=== PATIENT | female | born 1950 | race Two or more races ===

== ENCOUNTER 2019-12-09 07:44 | Day surgery (SDC) | payer OTHER ==
[2019-12-09] VITALS (10 sets, daily range): BP systolic 116–162; BP diastolic 58–81
[~2019-12-09] VITALS: Ht 157.5 cm; Wt 51.3 kg
--- NOTE | 2019-12-09 07:52 | Short Stay Surgery H&P ---
History of Present Illness History of Present Illness Chief Complaint abdominal pains and GERDs HPI Kacey Almanza is a 69 year old female who was admitted on for Abdominal Pain/GERDs Patient History PAST MEDICAL HISTORY: (1) Hypertension (2) Umbilical hernia (3) Renal cyst, acquired, right Review of Systems Cardiovascular: Reports: hypertension Respiratory: Reports: no symptoms Skeletal: Reports: trauma Gastrointestinal: Reports: gastro esophageal reflux disease Genitourinary: Reports: no symptoms Neurologic: Reports: no symptoms Endocrine: Reports: no symptoms Hematologic: Reports: no symptoms Physical Exam Skin: normal HENT: normal Heart: normal Lungs: normal Abdomen: abnormal Extremities: normal Genitourinary: normal Plan Plan of Care Upper GI. endoscopy and biopsy Preop Interventions None Summary of Findings See the reports Attestation Are the patient's medical conditions optimized for surgery? Attestation Response: yes Leigh Ann Gonzáles MD Dec 09, 2019 07:52
--- NOTE | 2019-12-09 07:53 | Anethesia Preoperative Eval ---
Anesthesia Pre-op PMH/ROS General Date of Evaluation: Dec 09, 2019 Time of Evaluation: 07:51 Anesthesiologist: nena ASA Score: ASA 4 Mallampati Score Class I : Soft palate, uvula, fauces, pillars visible Class II: Soft palate, uvula, fauces visible Class III: Soft palate, base of uvula visible Class IV: Only hard plate visible Mallampati Classification: Class II Surgeon: ousmane Diagnosis: abdominal pain, gerd Surgical Procedure: egd Anesthesia History: none Family History: no anesthesia problems Allergies: Coded Allergies: No Known Allergies (Unverified , 12/09/19) Medications: see eMAR Patient NPO?: Yes Past Medical History Cardiovascular: Reports: HTN Gastrointestinal/Genitourinary: Reports: GERD, other - renal cysts, umbilical hernia Hematology/Immune: Reports: other - covid-19 negative as of 12/05/2019 Anesthesia Pre-op Phys. Exam Physician Exam Last Vital Signs Date Time Temp Pulse Resp B/P (MAP) Pulse Ox O2 Delivery O2 Flow Rate FiO2 12/09/19 08:37 Room Air 12/09/19 08:05 97.0 62 18 162/79 100 Constitutional: NAD Neurologic: CN 2-12 intact Cardiovascular: RRR Respiratory: CTA Gastrointestinal: S/NT/ND Airway Exam Mallampati Score: Class II MO: limited Neck: flexible TMD: 2fb ROM: limited Anesthesia Pre-op A/P Labs Microbiology Date/Time Source Procedure Growth Status 12/05/19 09:50 Nasopharynx SARS-CoV-2 RdRp Gene Assay - Final Complete Risk Assessment & Plan Assessment: asa4 Plan: mac Status Change Before Surgery: No Pre-Antibiotics Drug: Sunni An MD Dec 09, 2019 07:53
--- NOTE | 2019-12-09 07:53 | Pre-Procedure Note/Attestation ---
Pre-Procedure Note/Attestation Complete Prior to Procedure Planned Procedure: left Procedure Narrative: Examination of the upper GI tract via endoscopy with obtaining biopsy as needed Indications for Procedure Pre-Operative Diagnosis: R/O Peptic ulcer/Gastritis/esophagitis Attestation I attest that I discussed the nature of the procedure; its benefits; risks and complications; and alternatives (and the risks and benefits of such alternatives ), prior to the procedure, with the patient (or the patient's legal employee representative). I attest that, if there was a reasonable possibility of needing a blood transfusion, the patient (or the patient's legal employee representative) was given the [facility] standardized written summary, pursuant to the [place] Blood Safety Act ([place] Health and Safety Code # 1645, as amended). I attest that I re-evaluated the patient just prior to the surgery and that there has been no change in the patient's H&P, except as documented below: Leigh Ann Gonzáles MD Dec 09, 2019 07:53
[2019-12-09] MEDS ORDERED: Lidocaine 1% MPF 10mg/ml 5ml ONE (08:00)
[2019-12-09] MEDS ORDERED: LR 1000ml ONE (08:00)
[2019-12-09] MEDS ORDERED: LR 1000ml 1,000 ML IVLG SCH (08:34)
[2019-12-09] MEDS ORDERED: DiphenhydrAMINE 50mg/ml Inj IVP PRN (08:45)
[2019-12-09] MEDS ORDERED: fentaNYL 100 mcg/2 mL IV PRN (08:45)
[2019-12-09] MEDS ORDERED: Atropine Inj 1mg/10ml Syr IV PRN (08:45)
[2019-12-09] MEDS ORDERED: Midazolam 2mg/2ml Inj IVP PRN (08:45)
--- NOTE | 2019-12-09 08:45 | Endoscopy Procedure Note ---
Endoscopy Procedure Note General Indication for Procedure: Abdominal pains and GERDs Procedures Performed: EGD - Minimal gastritis otherwise normal upper GI. endoscopy. Biopsies obtained from antrum and gastric body. Specimen: yes Pt Tolerated Procedure Well: Yes Estimated Blood Loss: none Anesthesia Anesthesiologist: Dr. Joseph Anesthesia: moderate sedation Medications Medication Given: see anesthesia record Inserted Devices Implant(s) used?: No Quality Quality of Bowel Preparation: Excellent Was there any complications?: No GI Core Measures 50 yrs or older w/o bx or poly: Not Applicable 10yrs. F/U recommended: Not Applicable If not recommended, why?: Med reason:<3 yrs.: System Reason:<3 yrs.: Leigh Ann Gonzáles MD Dec 09, 2019 08:45
[2019-12-09] MEDS ORDERED: GABAPENTIN100 MG ORAL (08:46)
[2019-12-09] MEDS ORDERED: LOSARTAN POTASS50 MG ORAL (08:47)
--- NOTE | 2019-12-09 08:47 | Discharge Instructions ---
Discharge Instructions Discharge Instructions Follow up with: No need to follow with the doctor For Congestive Heart Failure Reminder Report to your physician any weight gain of 5 pounds or more in one week. Leigh Ann Gonzáles MD Dec 09, 2019 08:47
--- NOTE | 2019-12-09 09:26 | Immediate Post-Op Evaluation ---
Immediate Post-Op Evalulation Immediate Post-Op Evalulation Procedure: egd w/bx Date of Evaluation: Dec 09, 2019 Time of Evaluation: 09:07 IV Fluids: 200ml lr Blood Products: none Estimated Blood Loss: negligible Blood Pressure Systolic: 116 Blood Pressure Diastolic: 58 Pulse Rate: 75 Respiratory Rate: 18 O2 Sat by Pulse Oximetry: 100 Temperature (Fahrenheit): 97.0 Pain Score (1-10): 0 Nausea: No Vomiting: No Complications none Patient Status: awake, reacts, patent Hydration Status: adequate Drug: Sunni An MD Dec 09, 2019 09:26
--- NOTE | 2019-12-09 09:26 | 48 Hour Post Anesthesia Eval ---
Post Anesthesia Evaluation Procedure: egd w/bx Date of Evaluation: Dec 09, 2019 Time of Evaluation: 09:09 Blood Pressure Systolic: 131 0: 81 Pulse Rate: 63 Respiratory Rate: 18 Temperature (Fahrenheit): 97.0 O2 Sat by Pulse Oximetry: 100 Airway: patent Nausea: No Vomiting: No Pain Intensity: 0 Hydration Status: adequate Cardiopulmonary Status: stable Mental Status/LOC: patient returned to baseline Post-Anesthesia Complications: none Follow-up care needed: N/A Sunni Joseph MD Dec 09, 2019 09:26
--- NOTE | 2019-12-09 10:00 | Pre-op HX & Phy Repo 2 SIG ---
DATE OF ADMISSION: 12/09/2019 HISTORY OF PRESENT ILLNESS: The patient is a 69-year-old female who is being seen prior to undergoing the procedure of upper GI endoscopy for which she has been scheduled to evaluate her gastrointestinal conditions including upper GI pain that she has been suffering from subsequent to her work injury. The patient was evaluated by me approximately 4 months ago in the office with no further follow-ups. At this time, she is being evaluated medically prior to undergoing the procedure of upper GI endoscopy as I mentioned. The applicant at this time complains of experiencing pain over the upper part of the abdomen associated with rather severe heartburn. She also reports that occasionally she does have difficulty swallowing with foods. The severity of the epigastric pain that she is complaining of is moderate at this point of time, but she has been taking medications such as PPIs and acid suppressors along with antacids to help her with these symptoms, which seems to be good response. She also complains of occasional gas and bloating. She however denies any history of recent vomiting blood or passing bright red blood per rectum. There was no diarrhea or constipation either. 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 At that time, she was started on nonsteroidal anti-inflammatory agents such as naproxen and ibuprofen that she took for some time. However, she does not seem to be taking them any longer at this point of time. PAST MEDICAL HISTORY: Patient has had history of hypertension, otherwise she denies having any history of pneumonia, pancreatitis, hepatitis, or hyperlipidemia etc. PAST SURGICAL HISTORY: Patient has had history of umbilical hernia operation as well as removal of the right kidney cyst. ALLERGIES: To grass. HABITS: The applicant denies drinking alcohol or smoking cigarettes. MEDICATIONS: Current medications are Protonix, metoprolol, sucralfate, gabapentin, hydrochlorothiazide, and Pilocarpine. REVIEW OF SYSTEMS: Basically history of present illness. She denies having any headaches or dizziness or history of fall or syncope. There has been no history of chest pain or shortness of breath or cough or asthma. Neurologically, she also denies having any weakness or tingling sensations or numbness at this time. PHYSICAL EXAMINATION: GENERAL: At this time reveals alert, well oriented, very pleasant female, who does not seem to be in any acute distress. She looks well developed and nourished. VITAL SIGNS: Temperature 97.0, blood pressure 162/78, pulse rate 62 per minute, respiratory rate is 16 per minute, oxygen saturation is 100%. HEENT: Normocephalic. Pupils equal in size and reactive to light and accommodation. No visible jaundice. Buccal cavity, tongue midline, well hydrated. No ulcers. NECK: Supple. No JVD, thyromegaly, or adenopathy. CHEST: Clear to auscultation and percussion. No rales or rhonchi. HEART: S1, S2 normal. Regular rhythm. No gallops or murmur. ABDOMEN: Soft. Mild tenderness felt over the epigastric area, but there is no organomegaly. No masses. Bowel sounds are adequately present. EXTREMITIES: Within normal limits. No pretibial edema, cyanosis, or clubbing. CENTRAL NERVOUS SYSTEM: Grossly normal. INITIAL PREOPERATIVE IMPRESSION: 1. Epigastric pain of uncertain etiology, rule out NSAID-induced gastropathy, peptic ulcer disease, gastritis, duodenal ulcer, esophagitis, etc. 2. Hypertension. RECOMMENDATION: At this time, the applicant seems to be capable and is stable to undergo the procedure of upper GI endoscopy for which she has been scheduled. She understands the risks and benefits and will sign the consent form. Said Denise Gonzáles DR: BERNA JOB#: [id number] CC:
--- NOTE | 2019-12-09 11:45 | Operative Note - Dictated ---
DATE OF OPERATION: 12/09/2019 SURGEON: Leigh Ann Gonzáles MD. PROCEDURE: Esophagogastroduodenoscopy with biopsy. PREOPERATIVE DIAGNOSIS: Abdominal pain, rule out peptic ulcer disease, gastritis, duodenitis, esophagitis secondary to use of NSAID medications. POSTOPERATIVE DIAGNOSIS: Minimal gastritis. Biopsies were taken from antrum and gastric body. MEDICATION USED: Per Dr. Ortega, anesthesiologist. INSTRUMENT: GIF Olympus upper GI video endoscope. DESCRIPTION OF PROCEDURE: The patient after arriving an endoscopy unit, was told about risks and benefits of the procedure that she accepted and signed informed consent. She was then put on the left lateral decubitus position. After adequate IV sedation, the scope was gently passed through the cricopharyngeal area, was lodged into the upper esophagus and gradually advanced towards gastroesophageal junction. The entire length of the esophagus was normal. The GE junction also looked completely normal without any evidence of Euceda's or hiatal hernia. At this time, the scope was advanced into the stomach. Gastric cavity was distended with insufflation of air. The areas of the fundus and the body and the antrum were examined in an load dropper fashion, which revealed basically minimal inflammatory process mostly significant in the upper part of the antrum. There was no ulcers or tumors or polyps, etc. At this point, a retroflexion maneuver was applied. The area of the gastroesophageal junction was examined in a closer fashion, which revealed normal. Finally, the scope was straightened and a biopsy from the gastric body and subsequently another biopsy from the antrum was obtained and subsequently scope was passed through the pylorus. First and second portion of duodenum were also found to be completely normal. At this time, the scope was pulled out and the procedure was terminated. The patient tolerated the procedure well and left the endoscopy room in a good condition. Leigh Ann Gonzáles M.D. DR: RAMIN JOB#: [id number] CC:
== END 2019-12-09 10:05 | disposition home or self-care (01) ==
LOC: GAS 07:44
DX: R10.9 Unspecified abdominal pain (principal); K29.50 Unspecified chronic gastritis without bleeding; I10 Essential (primary) hypertension; E78.5 Hyperlipidemia, unspecified; Z79.899 Other long term (current) drug therapy; K21.9 Gastro-esophageal reflux disease without esophagitis
CPT/HCPCS: 43239; 94003; J2704; J7120; U0002; 94150